=== PATIENT | male | born 1970 | race African-American/Black ===

== ENCOUNTER → 2021-01-09 | Outpatient (CLI) | payer OTHER ==
[~2021-01-09] MED LIST: AMLO1TAB24; CHLO125TA; ECOT81TA5 PO; METO1TAB7; SIMV20TA22; VITMTA PO
== END ==
LOC: M LABSMTC 10:10
PROVIDERS: ATTEND Anesthesiology
DX: Z01.818 Encounter for other preprocedural examination (principal); Z11.52 Encounter for screening for COVID-19

== ENCOUNTER 2021-01-14 10:36 | Day surgery (SDC) | payer OTHER ==
[~2021-01-14] VITALS: Ht 177.8 cm; Wt 123.6 kg
[~2021-01-14 10:36] MED LIST changes: +NS 1,000 ML IV ONE
[2021-01-14] MEDS ORDERED: LIDOCAINE 2% 100MG/5ML SDV (FOR ANES.) As Ordered ONE (12:21)
[2021-01-14] MEDS ORDERED: propofoL 200 MG/20 ML VIAL As Ordered ONE (12:21)
--- NOTE | 2021-01-14 12:53 | ROOR ---
Patient Name: Jono Mayberry Procedure Date: 01/14/2021 12:30 PM Date of : 1970 Age: 50 Room: [facility] Gender: Male Note Status: Finalized Procedure: Colonoscopy Indications: Screening for colorectal malignant neoplasm Providers: Martin Zabala MD Referring MD: Winifred HADDAD NP Requesting Provider: Medicines: Monitored Anesthesia Care Complications: No immediate complications. Procedure: Pre-Anesthesia Assessment: - The heart rate, respiratory rate, oxygen saturations, blood pressure, adequacy of pulmonary ventilation, and response to care were monitored throughout the procedure. The Colonoscope was introduced through the anus and advanced to the terminal ileum, with identification of the appendiceal orifice and IC valve. The colonoscopy was performed without difficulty. The patient tolerated the procedure well. The quality of the bowel preparation was good. Findings: The perianal and digital rectal examinations were normal. A diminutive polyp was found in the ascending colon. The polyp was sessile. The polyp was removed with a jumbo cold forceps. Resection and retrieval were complete. The exam was otherwise without abnormality on direct and retroflexion views. Small Internal Hemorrhoids. Impression: - One diminutive polyp in the ascending colon, removed with a jumbo cold forceps. Resected and retrieved. - Small Internal Hemorrhoids. - The colon and terminal ileum are otherwise normal on direct and retroflexion views. Recommendation: - Repeat colonoscopy in 5 years for surveillance. Procedure Code(s): --- Professional --- 92375, Colonoscopy, flexible; with biopsy, single or multiple Diagnosis Code(s): --- Professional --- K63.5, Polyp of colon Z12.11, Encounter for screening for malignant neoplasm of colon CPT copyright 2019 [employer]. All rights reserved. The codes documented in this report are preliminary and upon surgical coder review may be revised to meet current compliance requirements. Martin Zabala MD Martin Zabala MD 01/14/2021 12:53:40 PM Electronically signed by Martin Zabala MD Number of Addenda: 0 Note Initiated On: 01/14/2021 12:30 PM Estimated Blood Loss: Estimated blood loss: none.
== END 2021-01-14 13:31 | disposition home or self-care (01) ==
LOC: M OPP 10:36
PROVIDERS: ATTEND Internal Medicine Gastroenterology
DX: Z12.11 Encounter for screening for malignant neoplasm of colon (principal); D12.2 Benign neoplasm of ascending colon; K64.8 Other hemorrhoids; I10 Essential (primary) hypertension; E78.5 Hyperlipidemia, unspecified; G47.30 Sleep apnea, unspecified; F17.210 Nicotine dependence, cigarettes, uncomplicated; Z79.82 Long term (current) use of aspirin; Z79.899 Other long term (current) drug therapy; Z80.3 Family history of malignant neoplasm of breast